=== PATIENT | male | born 1945 | race Caucasian/White ===

== ENCOUNTER 2021-07-14 07:14 | Day surgery (SDC) | payer MEDICARE ==
[2021-07-14] VITALS (16 sets, daily range): BP systolic 102–192; BP diastolic 66–92; PULSE 59–62; TEMP 98–98.5
[~2021-07-14] VITALS: Ht 180.3 cm; Wt 98.6 kg
[2021-07-14 08:13] LABS: HEMOGLOBIN 11.8 g/dl (13.5-18.0); MEAN CELL VOLUME 93 fl (80.0-100.0); MEAN CORPUSCULAR HEMOGLOBIN 32 pg (27.0-31.0); MEAN CORPUSCULAR HGB CONC 35 g/dl (33.0-37.0); MEAN PLATELET VOLUME 9.9 fl (7.4-10.4); PLATELET COUNT 134 K/mm3 (130-400); RED BLOOD COUNT 3.67 M/mm3 (4.20-5.60); REDCELL DISTRIBUTION WIDTH-CV 12.5 % (11.5-14.5)
[2021-07-14 08:25] LABS: INR 1.1 (0.8-3.0); PROTHROMBIN TIME 12.2 SECONDS (9.7-12.8)
[2021-07-14 08:28] LABS: PARTIAL THROMBOPLASTIN TIME 32.2 SECONDS (26.0-37.0)
[2021-07-14 08:32] LABS: CREATININE, serum 0.94 mg/dL (0.72-1.25); POTASSIUM 3.7 mmol/L (3.5-4.5)
[2021-07-14] MEDS ORDERED: TOPROL XL 50MG50 MG PO (08:32)
[2021-07-14] MEDS ORDERED: AVALIDE 12.5 MG1 TA1 PO (08:33)
[2021-07-14] MEDS ORDERED: LIPITOR 10MG10 MG PO ×2 (08:35→12:16)
[2021-07-14] MEDS ORDERED: VIBRAMYCININJ PO (08:36)
[2021-07-14] MEDS ORDERED: MOBIC15 MG PO (08:38)
[2021-07-14] MEDS ORDERED: NEURONTIN300 MG/CAP PO (08:40)
[2021-07-14] MEDS ORDERED: FLEXERIL 1010 MG/TAB PO (08:41)
--- NOTE | 2021-07-14 08:50 | NUR ---
SEE MERGE FOR ALL MEDICATION ADMINISTRATION TIMES, INTRA AND POST SEDATION ASSESSMENTS
[2021-07-14] MEDS ORDERED: DOXYCYCLINE 10100 MG PO (11:45)
[2021-07-14] MEDS ORDERED: VITAMIN B COMPL1 SGL PO (12:18)
--- NOTE | 2021-07-14 12:18 | NUR ---
PT RECEIVED ON UNIT. POST OP VITALS INITIATED. PT MED REC, ALLERGIES, AND PHARMACY CONFIRMED.
--- NOTE | 2021-07-14 13:50 | NUR ---
PT BLOOD PRESSURE HIGH, PT WAS EATING AT TIME, DENIES PAIN. PT EXPRESSED SOA WITH MASK ON AND WHEN AMBULATING TO BATHROOM. QUICKLY RESOLVED. SPO2 AFTER SITTING BACK DOWN 99% ON ROOM AIR.
--- NOTE | 2021-07-14 15:21 | NUR ---
PT STATES BRIEF PERIOD OF SOA, HAS RESOLVED. SPO2 97% ON ROOM AIR.
--- NOTE | 2021-07-14 15:51 | NUR ---
PT HAS 2ML TAKEN OUT OF BAND, NO ACTIVE BLEEDING NOTED. PT BAND NOW HAS 13ML TOTAL
--- NOTE | 2021-07-14 16:41 | NUR ---
PT ASSESSMENT COMPLETED. PT HAS CLEAR LUNGS TO AUSCULTATION. DENIES SOA AT THIS TIME. MURMUR NOTED DURING AUSCULTATION OF HEART. PT HAS PAIN IN RIGHT HIP STATES GETTING MRI NEXT MONDAY. PT HAS STITCH AND BRUISE UNDER RIGHT EYE FROM BIOPSY PRIOR TO HOSPITAL STAY. PT DENIES PAIN AT THIS TIME. PULSES 2+, ALERT AND ORIENTED. CAP REFILL <3S. PT ABLE TO AMBULATE INDEPENDENTLY. PT VISITED THROUGHOUT DAY. PT TOLERATED ORAL INTAKE WELL. CALL LIGHT WIHTIN REACH. NO OTHER NEEDS AT THIS TIME.
--- NOTE | 2021-07-14 16:46 | NUR ---
REMOVED 2ML FROM BAND, NO ACTIVE BLEEDING NOTED. 11ML IN BAND NEW TOTAL.
--- NOTE | 2021-07-14 17:16 | NUR ---
2ML REMOVED FROM BAND. NO ACTIVE BLEEDING NOTED. TOTAL LEFT, 9ML.
--- NOTE | 2021-07-14 18:14 | NUR ---
REMOVED 2ML FROM BAND, NO ACTIVE BLEEDING NOTED. TOTAL LEFT 7ML.
--- NOTE | 2021-07-14 19:09 | NUR ---
NOTIFIED DR. KAUFFMAN OF NEEDING VTE PROPHYLAXIS. RECEIVED TELEPHONE ORDERS FOR SCDS.
[2021-07-15] VITALS: BP 162/77; PULSE 59; TEMP 98.6
[2021-07-15 00:22] VITALS: BP 162/77; PULSE 59; TEMP 98.6
[2021-07-15 02:03] VITALS: BP 162/77; PULSE 59; TEMP 98.6
[2021-07-15 04:22] VITALS: BP 160/80; PULSE 61; TEMP 97.9
[2021-07-15 06:42] LABS: BASO % 0.4 % (0.0-2.0); EOS # 0.2 K/mm3 (0.0-0.7); EOS % 2.4 % (0-4.0); GRAN # 4.2 K/mm3 (1.4-6.5); GRAN % 61.7 % (42.2-75.2); HEMOGLOBIN 11.8 g/dl (13.5-18.0); LYMPH # 1.9 K/mm3 (1.2-3.4); LYMPH % 27.9 % (20.0-51.0); MEAN CELL VOLUME 91 fl (80.0-100.0); MEAN CORPUSCULAR HEMOGLOBIN 32 pg (27.0-31.0); MEAN CORPUSCULAR HGB CONC 35 g/dl (33.0-37.0); MEAN PLATELET VOLUME 10.4 fl (7.4-10.4); MONO # 0.5 K/mm3 (0.1-0.6); MONO % 7.3 % (1.7-9.3); PLATELET COUNT 141 K/mm3 (130-400); REDCELL DISTRIBUTION WIDTH-CV 12.4 % (11.5-14.5)
[2021-07-15 06:43] LABS: HEMATOCRIT 33.7 % (42.0-52.0)
[2021-07-15 06:53] LABS: CALCIUM 8.9 mg/dL (8.4-10.2); CREATININE, serum 0.93 mg/dL (0.72-1.25); POTASSIUM 4.4 mmol/L (3.5-4.5)
--- NOTE | 2021-07-15 07:03 | NUR ---
Pt. progressing w/ plan of care. Pt. sitting OOB in chair and reports feeling good today. Pt. reports he is waiting for breakfast and denies further needs at this time. Call light and belongings in reach.
[2021-07-15 08:17] VITALS: BP 169/82; PULSE 59; TEMP 97.7
[2021-07-15] MEDS ORDERED: BRILINTA90 MG PO (09:33)
[2021-07-15] MEDS ORDERED: LIPITOR 80MG80 MG PO (09:34)
[2021-07-15] MEDS ORDERED: ASPIRIN 81M81 MG/TA2 PO (09:35)
--- NOTE | 2021-07-15 09:41 | NUR ---
Lsat Instructor met with patient to discuss discharge planning. Patient lives in [place] with his , Claire (ph#[phone]) who is at bedside. Patient sees Dr. Flores for primary care and obtains medications from [facility] with no difficulties. Patient sometimes uses a cane but does not use any other DME. Patient is independent with ADLS and plans to return home upon discharge. Patient does not have Advance Directives but was interested in form. SW provided. Discharge Plan: Home
--- NOTE | 2021-07-15 10:45 | NUR ---
Initial visit; Patient and his thanked Gameplay Programmer for looking in on him before he left. Patient states he had a wonderful stay and thanked football scout for offering God's blessings.
--- NOTE | 2021-07-15 11:30 | NUR ---
Pt. was discharged home w/ . Pt. was given instructions on following up with cardiology as well as new medications and discharge instructions. Pt. agreeable w/ plan of care. Pt. left floor via foot w/ . IV removed, site c/d/i. Tele removed. All questions answered.
== END 2021-07-15 11:32 | disposition home or self-care (01) ==
LOC: COL.CAR 07:14 → MEDICAL 11:59 → COL.CAR 07-15 11:32
PROVIDERS: Internal Medicine Cardiovascular Disease
DX: I25.10 Atherosclerotic heart disease of native coronary artery without angina pectoris (principal); I08.0 Rheumatic disorders of both mitral and aortic valves; I10 Essential (primary) hypertension; I47.2 Ventricular tachycardia; I47.1 Supraventricular tachycardia; E78.5 Hyperlipidemia, unspecified; M19.90 Unspecified osteoarthritis, unspecified site; M25.559 Pain in unspecified hip; Z95.0 Presence of cardiac pacemaker; Z79.899 Other long term (current) drug therapy; Z82.3 Family history of stroke
CPT/HCPCS: OP; C1769; C1874; C1887; C9600; J0583; J1644; J2250; J2704; J3010; Q9967

== ENCOUNTER → 2021-09-01 | Outpatient (CLI) | payer MEDICARE ==
--- NOTE | 2021-07-19 08:31 | NUR ---
pt rescheduled due to new stent placement
[~2021-09-01] MED LIST: ASPIRIN 81M81 MG/TA2 PO; AVALIDE 12.5 MG1 TA1 PO; BRILINTA90 MG PO; DOXYCYCLINE 10100 MG PO; FLEXERIL 1010 MG/TAB PO; LIPITOR 10MG10 MG PO; LIPITOR 80MG80 MG PO; MOBIC15 MG PO; NEURONTIN300 MG/CAP PO; TOPROL XL 50MG50 MG PO; VIBRAMYCININJ PO; VITAMIN B COMPL1 SGL PO
== END ==
LOC: COL.RAD 07-20 07:30
DX: M48.061 Spinal stenosis, lumbar region without neurogenic claudication (principal); M51.26 Other intervertebral disc displacement, lumbar region

== ENCOUNTER → 2021-09-21 | Outpatient (CLI) | payer MEDICARE | LOC: COL.RAD 11:36 | DX: E04.2 Nontoxic multinodular goiter (principal) ==

== ENCOUNTER 2021-11-03 12:51 | Emergency (ER) | payer MEDICARE ==
[~2021-11-03] VITALS: Ht 180.3 cm; Wt 91.7 kg
[2021-11-03 13:01] VITALS: TEMP 98.4
[2021-11-03 13:55] LABS: BASO % 0.5 % (0.0-2.0); EOS # 0.1 K/mm3 (0.0-0.7); EOS % 1.4 % (0.0-4.0); GRAN # 5.3 K/mm3 (1.4-6.5); HEMOGLOBIN 11.6 g/dl (13.5-18.0); LYMPH # 1.8 K/mm3 (1.2-3.4); LYMPH % 23.1 % (20.0-51.0); MEAN CELL VOLUME 93 fl (80.0-100.0); MEAN CORPUSCULAR HEMOGLOBIN 32 pg (27-31); MEAN CORPUSCULAR HGB CONC 34 g/dl (33.0-37.0); MEAN PLATELET VOLUME 10.3 fl (7.4-10.4); MONO # 0.5 K/mm3 (0.1-0.6); MONO % 6.7 % (1.7-9.3); PLATELET COUNT 161 K/mm3 (130-400); RED BLOOD COUNT 3.64 M/mm3 (4.20-5.60); REDCELL DISTRIBUTION WIDTH-CV 12.7 % (11.5-14.5)
[2021-11-03 13:56] LABS: HEMATOCRIT 33.8 % (42.0-52.0)
[2021-11-03 14:33] LABS: CREATININE, serum 0.94 mg/dL (0.72-1.25); POTASSIUM 4.2 mmol/L (3.5-4.5); TOTAL PROTEIN 6.4 gm/dL (6.2-8.1)
[2021-11-03 14:34] LABS: COLLECTION METHOD CLEAN CATCH
[2021-11-03 14:40] LABS: MUCOUS Present (NOT PRESENT); PH 6 (5-8); SQUAMOUS EPITHELIAL 0-2 /hpf (0-10); URINE APPEARANCE Cloudy (CLEAR/HAZY); URINE BACTERIA None Seen /hpf (NONE SEEN); URINE BILIRUBIN Negative (NEGATIVE); URINE BLOOD Negative (NEGATIVE); URINE COLOR Amber (YELLOW); URINE GLUCOSE Negative (NEGATIVE); URINE KETONE Negative (NEGATIVE); URINE LEUKOCYTE ESTERASE Negative (NEGATIVE); URINE NITRATE Negative (NEGATIVE); URINE PROTEIN(semi-quant) Negative (NEGATIVE); URINE RBC 0-2 /hpf (0-2); URINE UROBILINOGEN Negative (NEGATIVE)
[2021-11-03 14:53] LABS: TSH w REFLEX 1.152 uIU/mL (0.350-4.940)
[2021-11-03 14:56] LABS: TROPONIN-I 0.043 ng/mL (0.00-0.033)
[2021-11-03] MEDS ORDERED: CORDARONE200 MG/TAB PO ×2 (15:18)
[2021-11-03 15:31] VITALS: BP 168/79; PULSE 80
== END 2021-11-03 15:31 | disposition home or self-care (01) ==
LOC: COL.ER 12:51
PROVIDERS: Emergency Medicine
DX: I48.20 Chronic atrial fibrillation, unspecified (principal); R74.8 Abnormal levels of other serum enzymes; Z95.4 Presence of other heart-valve replacement; Z95.0 Presence of cardiac pacemaker; Z95.5 Presence of coronary angioplasty implant and graft; Z20.822 Contact with and (suspected) exposure to COVID-19

== ENCOUNTER 2021-12-01 11:20 | Outpatient (RCR) | payer MEDICARE ==
[~2021-12-01 11:20] MED LIST changes: +CORDARONE200 MG/TAB PO
== END 2021-12-02 | disposition home or self-care (01) ==
LOC: COL.CR
DX: Z48.812 Encounter for surgical aftercare following surgery on the circulatory system (principal); Z95.2 Presence of prosthetic heart valve

== ENCOUNTER 2021-12-31 10:34 | Outpatient (RCR) | payer MEDICARE | END 2022-01-01 | disposition home or self-care (01) | LOC: COL.CR | DX: Z48.812 Encounter for surgical aftercare following surgery on the circulatory system (principal); Z95.2 Presence of prosthetic heart valve ==

== ENCOUNTER 2022-01-28 14:23 | Outpatient (RCR) | payer MEDICARE | END 2022-02-01 | disposition home or self-care (01) | LOC: COL.CR | DX: Z48.812 Encounter for surgical aftercare following surgery on the circulatory system (principal); Z95.2 Presence of prosthetic heart valve ==

== ENCOUNTER 2022-02-14 12:15 | Outpatient (RCR) | payer MEDICARE | END 2022-02-16 10:25 | disposition home or self-care (01) | LOC: COL.CR 12:15 | DX: Z48.812 Encounter for surgical aftercare following surgery on the circulatory system (principal); Z95.2 Presence of prosthetic heart valve ==

== ENCOUNTER 2022-03-02 14:58 | Outpatient (RCR) | payer SELFPAY | END 2022-03-03 | LOC: COL.CR | DX: Z29.8 Encounter for other specified prophylactic measures (principal) ==

== ENCOUNTER 2022-04-01 13:07 | Outpatient (RCR) | payer SELFPAY | END 2022-04-03 | LOC: COL.CR | DX: Z29.8 Encounter for other specified prophylactic measures (principal) ==

== ENCOUNTER → 2022-05-04 | Outpatient (RCR) | payer SELFPAY | LOC: COL.CR | DX: Z29.8 Encounter for other specified prophylactic measures (principal) ==

== ENCOUNTER 2022-10-04 10:50 | Outpatient (CLI) | payer MEDICARE ==
[~2022-10-04] VITALS: Ht 180.3 cm; Wt 84.7 kg
[2022-10-04 11:38] LABS: HEMOGLOBIN 11.6 g/dl (13.5-18.0); MEAN CELL VOLUME 96 fl (80.0-100.0); MEAN CORPUSCULAR HEMOGLOBIN 32 pg (27-31); MEAN CORPUSCULAR HGB CONC 33 g/dl (33.0-37.0); MEAN PLATELET VOLUME 10.7 fl (7.4-10.4); PLATELET COUNT 148 K/mm3 (130-400); RED BLOOD COUNT 3.67 M/mm3 (4.20-5.60); REDCELL DISTRIBUTION WIDTH-CV 13.6 % (11.5-14.5)
[2022-10-04 11:39] LABS: HEMATOCRIT 35.2 % (42.0-52.0)
[2022-10-04 11:48] VITALS: BP 178/80; PULSE 60; TEMP 98.4
[2022-10-04 11:52] LABS: INR 1.7 (0.8-3.0)
[2022-10-04 11:55] LABS: CALCIUM 9.2 mg/dL (8.4-10.2); CREATININE, serum 1.3 mg/dL (0.72-1.25); POTASSIUM 4.4 mmol/L (3.5-4.5)
[2022-10-04 12:40] VITALS: BP 137/69; PULSE 61; TEMP 98
[2022-10-04 12:55] VITALS: BP 150/77; PULSE 60; TEMP 98.4
--- NOTE | 2022-10-04 13:08 | NUR ---
PT RESTING IN BED, AT BEDSIDE. PT TAKING PO FLUIDS AND CRACKERS, DENIES N/V OR TROUBLE SWALLOWING.
[2022-10-04 13:10] VITALS: BP 149/70; PULSE 60; TEMP 98
[2022-10-04 13:25] VITALS: BP 140/78; PULSE 60; TEMP 98
[2022-10-04 13:55] VITALS: BP 157/75; PULSE 60; TEMP 97.9
--- NOTE | 2022-10-04 14:18 | NUR ---
PT DISCHARGED AMBULATORY TO HOME W/ S/P JAYDA AT 1405. VSS, PT IN STABLE CONDITION, PT ABLE TO EAT, DRINK, VOID PRIOR TO DISCHARGE.
== END 2022-10-04 14:05 | disposition home or self-care (01) ==
LOC: COL.RAD 10:50
PROVIDERS: Internal Medicine Cardiovascular Disease
DX: I48.91 Unspecified atrial fibrillation (principal)

== ENCOUNTER 2022-10-25 16:38 | Inpatient (IN) | payer MEDICARE ==
[~2022-10-25] VITALS: Ht 180.3 cm; Wt 85.0 kg
[2022-10-25 17:34] LABS: BASO % 0.4 % (0.0-2.0); EOS # 0.1 K/mm3 (0.0-0.7); EOS % 1.1 % (0.0-4.0); GRAN # 5.3 K/mm3 (1.4-6.5); GRAN % 70.6 % (42.2-75.2); LYMPH # 1.6 K/mm3 (1.2-3.4); LYMPH % 21.4 % (20.0-51.0); MEAN CELL VOLUME 102 fl (80.0-100.0); MEAN CORPUSCULAR HGB CONC 31 g/dl (33.0-37.0); MEAN PLATELET VOLUME 10.3 fl (7.4-10.4); MONO # 0.5 K/mm3 (0.1-0.6); MONO % 6.1 % (1.7-9.3); PLATELET COUNT 156 K/mm3 (130-400); RED BLOOD COUNT 2.01 M/mm3 (4.20-5.60); REDCELL DISTRIBUTION WIDTH-CV 15.1 % (11.5-14.5)
[2022-10-25 17:35] LABS: HEMATOCRIT 20.4 % (42.0-52.0); HEMOGLOBIN 6.4 g/dl (13.5-18.0); MEAN CORPUSCULAR HEMOGLOBIN 32 pg (27-31)
[2022-10-25 17:37] LABS: INR 1.5 (0.8-3.0); PROTHROMBIN TIME 17.4 SECONDS (9.7-12.8)
[2022-10-25 17:39] LABS: PARTIAL THROMBOPLASTIN TIME 39.6 SECONDS (26.0-37.0)
[2022-10-25 17:44] LABS: ALBUMIN 3.6 gm/dL (3.4-4.8); BILIRUBIN,TOTAL 0.5 mg/dL (0.2-1.2); CALCIUM 8.7 mg/dL (8.4-10.2); CREATININE, serum 1.52 mg/dL (0.72-1.25); POTASSIUM 4.1 mmol/L (3.5-4.5)
[2022-10-25 17:50] LABS: TROPONIN-I 0.029 ng/mL (0.00-0.033)
[2022-10-25 20:01] VITALS: BP 161/69; PULSE 59; TEMP 97.3
[2022-10-25 21:05] VITALS: BP 178/57; PULSE 62; TEMP 98.5
[2022-10-25 22:10] VITALS: BP 160/54; PULSE 60; TEMP 98.9
[2022-10-25 22:21] VITALS: BP 160/54; PULSE 60; TEMP 98.9
[2022-10-25 23:46] LABS: HEMATOCRIT 20.2 % (42.0-52.0)
[2022-10-25 23:47] LABS: HEMOGLOBIN 6.3 g/dl (13.5-18.0)
[2022-10-26] VITALS (12 sets, daily range): BP systolic 139–174; BP diastolic 56–68; PULSE 60–62; TEMP 97.8–98.7
[2022-10-26 08:57] LABS: BASO # 0.1 K/mm3 (0.0-0.2); BASO % 0.7 % (0.0-2.0); EOS # 0.1 K/mm3 (0.0-0.7); EOS % 1.4 % (0.0-4.0); GRAN # 6.9 K/mm3 (1.4-6.5); GRAN % 69.5 % (42.2-75.2); LYMPH # 2.3 K/mm3 (1.2-3.4); LYMPH % 22.9 % (20.0-51.0); MEAN CORPUSCULAR HGB CONC 32 g/dl (33.0-37.0); MEAN PLATELET VOLUME 9.9 fl (7.4-10.4); MONO # 0.5 K/mm3 (0.1-0.6); MONO % 5.1 % (1.7-9.3); PLATELET COUNT 162 K/mm3 (130-400); RED BLOOD COUNT 3.12 M/mm3 (4.20-5.60); REDCELL DISTRIBUTION WIDTH-CV 18.6 % (11.5-14.5)
[2022-10-26 08:59] LABS: HEMATOCRIT 29.3 % (42.0-52.0); HEMOGLOBIN 9.4 g/dl (13.5-18.0); MEAN CELL VOLUME 94 fl (80.0-100.0); MEAN CORPUSCULAR HEMOGLOBIN 30 pg (27-31)
[2022-10-26 09:12] LABS: CALCIUM 8.5 mg/dL (8.4-10.2); CREATININE, serum 1.43 mg/dL (0.72-1.25); POTASSIUM 4.3 mmol/L (3.5-4.5)
[2022-10-26] MEDS ORDERED: FERRO-TIME325 MG PO (13:36)
[2022-10-26] MEDS ORDERED: PROTONIX 40MG T40 MG PO (13:37)
[2022-10-26 16:02] LABS: HEMATOCRIT 26.6 % (42.0-52.0); HEMOGLOBIN 8.8 g/dl (13.5-18.0)
[2022-10-26] MEDS ORDERED: NATURE'S BLEND100 M2 PO (16:10)
[2022-10-26] MEDS ORDERED: FOLIC ACID 11 MG/TA1 PO (16:10)
[2022-10-26] MEDS ORDERED: MULTI-VITAMIN W1 TA1 PO (16:10)
[2022-10-26] MEDS ORDERED: NORVASC 5MG5 MG/TAB PO ×3 (16:46→16:47)
== END 2022-10-26 16:44 | disposition home or self-care (01) | DRG 378 ==
LOC: COL.ER 16:38 → MEDICAL 18:15
PROVIDERS: Emergency Medicine; Internal Medicine Gastroenterology; Student in an Organized Health Care Education/Training Program; ADMIT Internal Medicine
PROC: 30233N1 Transfusion of Nonautologous Red Blood Cells into Peripheral Vein, Percutaneous Approach (ICD-10-PCS; principal; 2022-10-25)
DX: K92.1 Melena (principal); D62 Acute posthemorrhagic anemia; N17.9 Acute kidney failure, unspecified; I25.10 Atherosclerotic heart disease of native coronary artery without angina pectoris; I35.0 Nonrheumatic aortic (valve) stenosis; F10.90 Alcohol use, unspecified, uncomplicated; Z20.822 Contact with and (suspected) exposure to COVID-19; D53.9 Nutritional anemia, unspecified; M19.90 Unspecified osteoarthritis, unspecified site; I27.20 Pulmonary hypertension, unspecified; E78.5 Hyperlipidemia, unspecified; I10 Essential (primary) hypertension; Z88.0 Allergy status to penicillin; Z95.5 Presence of coronary angioplasty implant and graft; Z88.2 Allergy status to sulfonamides; Z95.0 Presence of cardiac pacemaker; Z85.828 Personal history of other malignant neoplasm of skin; Z79.01 Long term (current) use of anticoagulants; Z95.4 Presence of other heart-valve replacement; Z90.89 Acquired absence of other organs; Z23 Encounter for immunization
CPT/HCPCS: J1756; P9016

== ENCOUNTER 2022-11-01 06:28 | Day surgery (SDC) | payer MEDICARE ==
[~2022-11-01] VITALS: Ht 180.3 cm; Wt 85.8 kg
[~2022-11-01 06:28] MED LIST changes: +FERRO-TIME325 MG PO; +FOLIC ACID 11 MG/TA1 PO; +MULTI-VITAMIN W1 TA1 PO; +NATURE'S BLEND100 M2 PO; +NORVASC 5MG5 MG/TAB PO; +PROTONIX 40MG T40 MG PO
[2022-11-01 08:37] VITALS: BP 154/81; PULSE 60; TEMP 97.6
[2022-11-01 08:45] VITALS: BP 114/67; PULSE 60; TEMP 97.3
[2022-11-01 09:00] VITALS: BP 113/80; PULSE 61
[2022-11-01 09:15] VITALS: BP 135/77; PULSE 60
--- NOTE | 2022-11-01 09:32 | NUR ---
0845- PATIENT RETURNS TO [facility] VIA [facility]ART. PT AWAKE AND ALERT. RESPIRATIONS UNLABORED. AMBULATED TO RECLINER CHAIR WITH 2:1 SBA. PT DENIES NAUSEA OR ABDOMINAL PAIN. HOOKED UP TO MONITOR AND VS OBTAINED. CALL LIGHT AT SIDE AND PRESENT. 0850- PATIENT TOLERATING SPRITE AND TWO MUFFINS WITHOUT NAUSEA OR DIFFICULTY SWALLOWING. 0900- D/C INSTRUCTIONS REVIEWED WITH PATIENT. PT VERBALIZED UNDERSTANDING AND A COPY OF INSTRUCTIONS PROVIDED IN D/C FOLDER. 0912- DR. SOLO IN ROOM SPEAKING WITH PATIENT. 0925- PATIENT DRESSES SELF. 0932- PATIENT DISCHARGED FROM UNIT VIA W/C TO A PERSONAL VEHICLE. PT LEFT HOSPITAL IN STABLE CONDITION.
== END 2022-11-01 09:32 | disposition home or self-care (01) ==
LOC: SDCO 06:28
DX: D12.4 Benign neoplasm of descending colon (principal); D12.2 Benign neoplasm of ascending colon; D12.3 Benign neoplasm of transverse colon; D12.0 Benign neoplasm of cecum; D50.9 Iron deficiency anemia, unspecified; D53.9 Nutritional anemia, unspecified; K57.30 Diverticulosis of large intestine without perforation or abscess without bleeding; K64.0 First degree hemorrhoids; K64.4 Residual hemorrhoidal skin tags; K55.20 Angiodysplasia of colon without hemorrhage; I10 Essential (primary) hypertension
CPT/HCPCS: J2704; J3010; J7120

== ENCOUNTER → 2022-12-28 | Outpatient (CLI) | payer MEDICARE | LOC: COL.RAD 12-09 11:15 | DX: E04.2 Nontoxic multinodular goiter (principal) ==

== ENCOUNTER → 2023-06-29 | Outpatient (CLI) | payer MEDICARE | LOC: COL.RAD 10:56 | DX: R18.8 Other ascites (principal) ==

== ENCOUNTER → 2023-08-04 | Outpatient (CLI) | payer MEDICARE ==
[~2023-08-04] VITALS: Ht 180.3 cm; Wt 82.5 kg
[~2023-08-04] MED LIST changes: +AVAPRO300 M1 PO; +CEFTIN500 MG PO; +MASON NATURAL325 MG PO; +OXYCODONE H5 MG/5 ML PO; +PERCOCET 325 MG1 TA2 PO; +PROAMATINE10 MG PO; +TYLENOL 325MG325 MG PO; +ZOFRAN 4MG T4 MG/TAB PO
[2023-08-04 13:10] VITALS: BP 108/61; PULSE 74; TEMP 97.7
[2023-08-04 14:15] VITALS: BP 104/62; PULSE 74
[2023-08-04 14:43] LABS: PERITONEAL -POLYMORPHONUCLEAR 9.1 % (0-25)
== END ==
LOC: COL.RAD 12:28
PROVIDERS: Internal Medicine
DX: Z11.4 Encounter for screening for human immunodeficiency virus [HIV] (principal); Z11.59 Encounter for screening for other viral diseases; K74.60 Unspecified cirrhosis of liver; R18.8 Other ascites
CPT/HCPCS: 19804